=== PATIENT | female | born 1960 | race Caucasian/White ===

== ENCOUNTER 2017-08-07 13:27 | Outpatient (CLI) | payer BC | END 2017-08-07 13:28 | disposition home or self-care (01) | LOC: BICMAMMO 13:27 | PROVIDERS: ATTEND Family Medicine | DX: Z12.31 Encounter for screening mammogram for malignant neoplasm of breast (principal) | CPT/HCPCS: 77063; 77067 ==

== ENCOUNTER 2018-08-13 13:42 | Outpatient (CLI) | payer BC | END 2018-08-13 13:43 | disposition home or self-care (01) | LOC: BICMAMMO 13:42 | PROVIDERS: ATTEND Family Medicine | DX: Z12.31 Encounter for screening mammogram for malignant neoplasm of breast (principal) | CPT/HCPCS: 77063; 77067 ==

== ENCOUNTER 2018-09-22 08:37 | Outpatient (CLI) | payer OTHER ==
--- NOTE | 2018-09-22 14:26 | CT ---
CT CERVICAL SPINE WITHOUT CONTRAST: HISTORY: Pain. COMPARISON: None. TECHNIQUE: A noncontrast cervical spine CT is performed in the axial plane. Sagittal and coronal reformatted im ages are submitted for interpretation. FINDINGS: No craniocervical dissociation. The lateral masses of C1 and C2, as well as the facets, have appropr iate articulation. Intact odontoid process. Straightening of normal cervical lordosis may be due to patient position or spasm. There is incomple te segmentation of C2 on C3. Moderate degenerative disk disease at C3-C4. Uncomplicated cervical fu renu changes at C7-T1. There is a prosthesis of the C7-T1 disk space. Severe degenerative change at C6-C7. The visualized soft tissue neck structures are unremarkable. There is no prevertebral soft tissue sw elling. The upper mediastinum and lung apices are unremarkable. Limited evaluation of the contents of the central spinal canal and neural foramina due to technique. C2-C3: No high-grade central canal stenosis or high-grade foraminal narrowing. C3-C4: Broad-based disk osteophyte complex abut the thecal sac. Mild central canal stenosis. Moder ate right foraminal narrowing due to uncovertebral hypertrophy and right facet hypertrophy. Mild lef t foraminal narrowing. C4-C5: No significant central canal stenosis. The foramina are patent. C5-C6: No significant central canal stenosis. Mild right foraminal narrowing. The left neural fora men is patent. C6-C7: Broad-based disk osteophyte complex abuts the thecal sac. Mild to moderate central canal [place] nosis. Degenerative changes in the bilateral uncovertebral joints results in mild to moderate bilate ral foraminal narrowing. C7-T1: No high-grade central canal stenosis. The neural foramina are patent. IMPRESSION: 1. Uncomplicated cervical fusion. 2. Multilevel degenerative disk disease, as described above. [id number], there is no high grade central canal stenosis. The greatest degree of central canal stenosis is at C6-C7. There is signifi cant foraminal narrowing at multiple levels, as described above. 3. Significant foraminal narrowing is noted on the right at C3-C4 and C5-C6 and bilaterally at C6-C7 . POS: [facility]
== END 2018-09-22 08:38 | disposition home or self-care (01) ==
LOC: SCSCT 08:37
PROVIDERS: ATTEND Family Medicine
DX: M50.13 Cervical disc disorder with radiculopathy, cervicothoracic region (principal); M48.02 Spinal stenosis, cervical region; Z98.1 Arthrodesis status
CPT/HCPCS: 72125

== ENCOUNTER 2019-04-15 09:23 | Outpatient (CLI) | payer BC ==
[2019-04-15 10:44] LABS: Hemoglobin 15.5 g/dL (12.0-16.0); Mean Corpuscular HGB CONC 33.2 g/dL (32.0-36.0); Mean Corpuscular Hemoglobin 30.3 pg (27.0-31.0); Mean Corpuscular Volume 91.4 fL (78.0-98.0); Mean Platelet Volume 8.8 fL (7.4-10.4); Platelet Count 243 thou/uL (130-400); RBC Distribution Width 12.9 % (11.5-14.5); White Blood Cell (WBC) Count 7.3 thou/uL (4.8-10.8)
[2019-04-15 10:46] LABS: INR-International Normal Ratio 0.9; Prothrombin Time 12.5 SEC (12.0-14.7)
[2019-04-15 10:47] LABS: PTT 29.9 SEC (22.9-36.1)
== END 2019-04-15 09:24 | disposition home or self-care (01) ==
LOC: LABBT 09:23
PROVIDERS: ATTEND Neurological Surgery
DX: Z01.812 Encounter for preprocedural laboratory examination (principal); G56.02 Carpal tunnel syndrome, left upper limb; G56.21 Lesion of ulnar nerve, right upper limb
CPT/HCPCS: 85027; 85610; 85730

== ENCOUNTER 2019-04-23 05:45 | Day surgery (SDC) | payer BC ==
[2019-04-15 09:43] VITALS: BMI 24.7
--- NOTE | 2019-04-22 07:41 | HP ---
HISTORY OF PRESENT ILLNESS: Ms. Akhtar is a 59-year-old female, who reports to our office for evaluation of neck pain. The patient states that she has had a history of C7-T1 fusion by Dr. Carlos Brice in 2006. Surgery helped significantly for a left radicular pain. At that time, she had symptoms burning in her hands and neck during approximately a year ago, injections and physical therapy have helped. Recently, the symptoms have progressively gotten worse and the injections are no longer helping. The patient describes numbness and tingling in her thumb, first and middle finger bilaterally. She describes neck pain, but no other radicular symptoms between the hand and the neck. Strength in her upper extremities are good. 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 She has done physical therapy and continues her home program. REVIEW OF SYSTEMS: A 10-point review of systems has been completed and is negative other than stated in the above HPI. PAST MEDICAL HISTORY: Hyperlipidemia, acquired hypothyroidism, HPV, acute sinusitis, toxic effect of venom, benign paroxysmal positional vertigo, hypertension, and allergies. PAST SURGICAL HISTORY: Spinal fusion, cervical vertebrae, Carlos Brice; supracervical hysterectomy with BSO. FAMILY HISTORY: Father is , diagnosed with cancer. Mother is , breast cancer and hypertension. SOCIAL HISTORY: The patient is a smoker, smokes approximately half pack a day. Uses alcohol occasionally. No other illicit drug use. The patient lives alone. MEDICATIONS: 1. Synthroid. 2. Simvastatin. 3. Flonase. 4. Calcium with vitamin D. ALLERGIES: PENICILLIN. PHYSICAL EXAMINATION: CONSTITUTIONAL: The patient is awake, alert, and oriented. NECK: Soft and supple. No masses are noted. Range of motion is intact and nonpainful. NEUROLOGIC: Awake, alert, and oriented x3. Memory, attention, fund of knowledge are normal. Cranial nerves grossly intact. RESPIRATIONS: Normal. Work of breathing, on room air. Motor exam, upper extremity 5/5 strength in deltoids, biceps, triceps, wrist extension, finger extension, finger intrinsics. Sensation is equal bilaterally. Reflexes are symmetric. Spurling's is negative. IMAGING: MRI some disk disease at C3-C4 right foramen, C5-C6 right foramen, and C6-C7 mild bilateral foraminal, nothing is severe, flexion extension. X-rays relatively stable. EMG nerve conduction study, carpal tunnel syndrome bilaterally, ulnar nerve flow of motor conduction of the elbow on the right. ASSESSMENT AND PLAN: Carpal tunnel syndrome, bilateral right ulnar neuropathy. Dr. Valenzuela has offered carpal tunnel release and ulnar nerve transposition. The patient states that she understands the risks of this procedure and is willing to proceed. Job ID: [id number]
[2019-04-23] MEDS ORDERED: Clindamycin/D5W 900 mg/50 ml Premix Bag ONE (06:04)
[2019-04-23] MEDS ORDERED: Levofloxacin 500 mg/D5W 100 ml Premix Bag ONE (06:09)
[2019-04-23] MEDS ORDERED: Fentanyl 100 MCG/2 ML VIAL ONE (06:16)
[2019-04-23] MEDS ORDERED: Sodium Chloride 0.9% 10 ML ONE (06:25)
[2019-04-23] MEDS ORDERED: Lidocaine 1% (PF) 30 ML VIAL ONE (06:25)
--- NOTE | 2019-04-23 10:18 | OP ---
DATE OF PROCEDURE: 04/23/2019 ENAMEL PULVERIZER: Carmela Beltre PA-C PREOPERATIVE INDICATION: Treat pain and prevent neurological deterioration. PREOPERATIVE DIAGNOSIS: Left ulnar neuropathy at the elbow, left carpal tunnel syndrome. POSTOPERATIVE DIAGNOSIS: Left ulnar neuropathy at the elbow, left carpal tunnel syndrome. PROCEDURE PERFORMED: Decompression and transposition in left ulnar nerve at the elbow, and decompression of left carpal tunnel. PREOPERATIVE MEDICATIONS: Clindamycin 900 mg, IV Levaquin 500 mg IV. DRAIN NUMBER: Zero. DRAIN TYPE: None. DESCRIPTION OF PROCEDURE: The patient was brought to the operating room. General LMA anesthesia was induced. The entire left arm was sterilely prepped and draped. We opened an incision with a 15-blade knife from the distal palmar crease of the left wrist into the palm in line with the web space between the middle and ring fingers. This extended about 2.5 cm. We controlled bleeding with gentle bipolar cautery and placed a self-retaining retractor. With a fresh 15-blade, we sectioned the transverse carpal ligament until we had opened roof of the carpal tunnel. We placed a [place]-4 dissector over the median nerve and then opened distally into the palmar fat pad and proximally into the forearm until the median nerve was well decompressed. We irrigated and left the bacitracin soaked sponge in the wound while we turned our attention to the elbow. We fashioned curvilinear incision behind the medial epicondyle extending into the forearm and into the proximal arm. After we opened our incision, we used sharp dissection until we had opened the cubital tunnel and identified the ulnar nerve. Dissected circumferentially around the nerve and placed a blue vessel loop around it. We then dissected proximally into the arm and distally into the forearm until we had mobilized enough nerve to transpose in a subcutaneous fashion to the anterior portion of the elbow. We sectioned the intermuscular septum above the elbow to allow for smooth transposition. We irrigated with bacitracin irrigation. We tacked the fat down to the medial epicondyle around the nerve to cushion in its transposed position. We extended and flexed the elbow and found no compression of the nerve. We closed both wounds in anatomical layers and we applied sterile dressings. This was a clean case, no contamination. Job ID: [id number]
[2019-04-23] MEDS ORDERED: Lidocaine 1% PF 5 ML VIAL ONE (13:36)
[2019-04-23] MEDS ORDERED: Dexamethasone 20 MG/5 ML VIAL ONE (13:36)
[2019-04-23] MEDS ORDERED: Ondansetron PF 4 MG/2 ML Vial ONE (13:36)
[2019-04-23] MEDS ORDERED: PROPOFOL 200 MG/20 ML VIAL ONE (13:36)
[2019-04-23] MEDS ORDERED: ePHEDrine 50 MG/ML VIAL ONE (13:36)
== END 2019-04-23 11:20 | disposition home or self-care (01) ==
LOC: SDC 05:45
PROVIDERS: ATTEND Neurological Surgery
PROC: 01N50ZZ Release Median Nerve, Open Approach (ICD-10-PCS; principal; 2019-04-23)
PROC: 01N40ZZ Release Ulnar Nerve, Open Approach (ICD-10-PCS; principal; 2019-04-23)
DX: G56.03 Carpal tunnel syndrome, bilateral upper limbs (principal); G56.22 Lesion of ulnar nerve, left upper limb; E78.5 Hyperlipidemia, unspecified; E03.9 Hypothyroidism, unspecified; H81.10 Benign paroxysmal vertigo, unspecified ear; I10 Essential (primary) hypertension; F17.210 Nicotine dependence, cigarettes, uncomplicated; Z79.899 Other long term (current) drug therapy; Z88.0 Allergy status to penicillin; Z88.2 Allergy status to sulfonamides; Z98.1 Arthrodesis status
CPT/HCPCS: J1956; J2001; J3010; J3490

== ENCOUNTER 2019-09-13 13:05 | Outpatient (CLI) | payer BC ==
--- NOTE | 2019-09-13 13:30 | RAD ---
XR Chest Pa Lat STANDARD HISTORY: Bronchitis, cough COMPARISON: None FINDINGS: The heart size is normal. The lungs are well expanded without focal areas of consolidation, pneumothorax or pleural effusions. IMPRESSION: No radiographic evidence of acute cardiopulmonary process.
== END 2019-09-13 13:06 | disposition home or self-care (01) ==
LOC: SCSRAD 13:05
PROVIDERS: ATTEND Nurse Practitioner Family
DX: J40 Bronchitis, not specified as acute or chronic (principal)
CPT/HCPCS: 71046